=== PATIENT | female | born 1980 | race African-American/Black ===

== ENCOUNTER 2017-01-09 14:46 | Emergency (ER) | payer MEDICAID ==
[~2017-01-09 14:46] MED LIST: FLUT50SP EACH NARE; IBUP600T26 PO; IBUP800 PO; IPRA0.03; LORTA5 PO; ZITH250T PO; ZOFR4TAB3 SL
[2017-01-09 14:48] VITALS: BP 145/65; PULSE 85; RESP 15; TEMP 98.3; O2SAT 99
--- NOTE | 2017-01-09 15:35 | PD ---
Physical Exam Narrative 36 y/o female presents for evaluation of a burning sensation in both eyes for two days. Vital signs reviewed. Seen at triage desk. Awaiting bed placement. Data Data Last Documented VS Vital Signs Date Time Temp Pulse Resp B/P Pulse Ox O2 Delivery O2 Flow Rate FiO2 01/09/17 14:48 98.3 85 15 145/65 99 MDM Medical Record Reviewed: Yes Supervised Visit with AMPARO: No Vidal Schmitz Jan 09, 2017 15:35
[2017-01-09] MEDS ORDERED: IBUP-232 PO (16:50)
[2017-01-09] MEDS ORDERED: MAXI5O EACH EYE (16:50)
--- NOTE | 2017-01-09 16:53 | PD ---
HPI Chief Complaint: Eye Problems/Injury Time Seen by Provider: 16:50 Travel History International Travel<30 days: No Contact w/Intl Traveler<30days: No Traveled to known affect area: No History of Present Illness HPI 36-year-old Afro-[place] female presents the emergency department with complaints of bilateral eye irritation, burning, and injection over the past 2 days. Patient states she feels may be due to some eyelash glue that she use the other day. Patient also wears contacts but she denies any specific injury that she can recall. She has no upper respiratory symptoms. She did have some drainage this morning from both eyes. She has pain of 7 out of 10 bilaterally in both eyes with photophobia. She denies visual changes. She has no other complaints and no known drug allergies. PFSH Past Medical History Diminished Hearing: No GERD: Yes ?: Not LMP: 12/30/16 : 2 Para: 2 Past Surgical History Abdominal Surgery: Yes (c-sec x 2) Section: Yes (x 2) Social History Alcohol Use: Yes (OCC) Tobacco Use: Yes (1 ppd) Substance Use: No Allergies-Medications (Allergen,Severity, Reaction): Coded Allergies: No Known Allergies (Verified , 03/27/16) Reported Meds & Prescriptions Reported Meds & Active Scripts Active Maxitrol Opth Drops (Neomycin/Polymyxin/Dexamethasone) 3.5-10,000-0.1 Mg-Units- % Susp 1 Drop EACH EYE Q4H Ibuprofen 600 Mg Tab 600 Mg PO Q6H PRN Review of Systems Except as stated in HPI: all other systems reviewed are Neg General / Constitutional: No: Fever Eyes: Positive: Photophobia, Drainage, Redness, Pain, Tearing, No: Diploplia, Blurred Vision, Foreign Body Sensation, Blind Spots, Visual changes, Blindness HENT: No: Headaches Cardiovascular: No: Chest Pain or Discomfort Respiratory: No: Shortness of Breath Gastrointestinal: No: Abdominal Pain Genitourinary: No: Dysuria Musculoskeletal: No: Pain Skin: No Rash Neurologic: No: Weakness Psychiatric: No: Depression Endocrine: No: Polydipsia Hematologic/Lymphatic: No: Easy Bruising Physical Exam Narrative GENERAL: Patient appears in mild distress. SKIN: Warm and dry. Normal color. Normal turgor. No rash. HEAD: Atraumatic. Normocephalic. EYES: Pupils equal and round. No scleral icterus. She has bilateral tearing and moderate conjunctival injection bilaterally. Cornea appears and remarkable bilaterally. ENT: No nasal bleeding or discharge. Mucous membranes pink and moist. TMs are clear bilaterally. Pharynx is clear. Airway is patent. NECK: Trachea midline. Supple and nontender. CARDIOVASCULAR: Regular rate and rhythm. RESPIRATORY: No accessory muscle use. Clear to auscultation. Breath sounds equal bilaterally. MUSCULOSKELETAL: Extremities without clubbing, cyanosis, or edema. No obvious deformities. NEUROLOGICAL: Awake and alert. No obvious cranial nerve deficits. Motor grossly within normal limits. Five out of 5 muscle strength in the arms and legs. Normal speech. PSYCHIATRIC: Appropriate mood and affect; insight and judgment normal. Data Data Last Documented VS Vital Signs Date Time Temp Pulse Resp B/P Pulse Ox O2 Delivery O2 Flow Rate FiO2 01/09/17 14:48 98.3 85 15 145/65 99 MDM Medical Decision Making Medical Screen Exam Complete: Yes Emergency Medical Condition: Yes Differential Diagnosis Chemical burn. Conjunctivitis. Corneal abrasion. Allergic reaction. Narrative Course Patient is felt to have a bilateral conjunctivitis due to either chemical exposure or trauma. Patient is given Maxitrol ophthalmic drops every 3 hours while awake for the next week. Patient is to use ibuprofen 600 mg every 6 hours when necessary pain. Patient should not use her contacts for at least one week and changed to a new set. 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 Diagnosis Primary Impression: Conjunctivitis Qualified Code: H10.33 - Acute conjunctivitis of both eyes, unspecified acute conjunctivitis type Referrals: [employer] Making [employer] Patient Instructions: Conjunctivitis (ED), General Instructions Additional Instructions: Patient is felt to have a bilateral conjunctivitis due to either chemical exposure or trauma. Patient is given Maxitrol ophthalmic drops every 3 hours while awake for the next week. Patient is to use ibuprofen 600 mg every 6 hours when necessary pain. Patient should not use her contacts for at least one week and changed to a new set. 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 Med/Other Pt SpecificInfo: Prescription(s) given Scripts [facility]-Cvlcrjtuq-Yszsjwkxpyrbo Opth Drops (Maxitrol Opth Drops)3.5-10,000-0.1 Mg-Units-% Susp1 Drop EACH EYE Q4H #1 BOTTLE Prov:Mal Casas MD 01/09/17 Ibuprofen 600 Mg Ffr410 Mg PO Q6H PRN (Pain/Inflammation) #40 TAB Prov:Mal Casas MD 01/09/17 Disposition: 01 DISCHARGE HOME Condition: Stable Kiet Chaudhary Jan 09, 2017 16:53
== END 2017-01-09 17:04 | disposition home or self-care (01) ==
LOC: NEPA 14:46
DX: H10.33 Unspecified acute conjunctivitis, bilateral (principal)
CPT/HCPCS: 99283